=== PATIENT | male | born 1990 | race Native Hawaiian/Other Pacific Islander ===

== ENCOUNTER 2018-05-25 08:29 | Outpatient (CLI) | payer OTHER ==
[2018-05-25 08:48] LABS: PLATELET COUNT 536 K/uL (142-355)
[2018-05-25 09:17] LABS: POTASSIUM 3.5 mmol/L (3.6-5.2)
== END 2018-05-25 19:11 | disposition home or self-care (01) ==
LOC: LABW 08:29
PROVIDERS: Internal Medicine
DX: K85.90 Acute pancreatitis without necrosis or infection, unspecified (principal)
CPT/HCPCS: 36415; 80053; 81000; 82150; 83690; 85027

== ENCOUNTER 2018-06-30 10:16 | Outpatient (CLI) | payer OTHER | END 2018-06-30 23:17 | disposition home or self-care (01) | LOC: US 10:16 | DX: R93.5 Abnormal findings on diagnostic imaging of other abdominal regions, including retroperitoneum (principal) ==

== ENCOUNTER 2018-11-24 05:45 | Inpatient (IN) | payer OTHER ==
[~2018-11-24] VITALS: Ht 172.7 cm; Wt 72.7 kg
[2018-11-24] VITALS (16 sets, daily range): BP systolic 108–162; BP diastolic 62–108; TEMP 97.4–98.7; Ht 172.7 cm; Wt 72.7 kg
[2018-11-24 06:29] LABS: PLATELET COUNT 233 K/uL (142-355)
[2018-11-24 06:54] LABS: POTASSIUM 3.3 mmol/L (3.6-5.2)
[2018-11-24 07:02] LABS: PARTIAL THROMBOPLASTIN TIME 21.9 SECONDS (24.5-33.6)
[2018-11-24 12:52] LABS: POTASSIUM 4.1 mmol/L (3.6-5.2); SODIUM 137 mmol/L (136-145)
[2018-11-25] VITALS: BP 112/69; TEMP 98.2
[2018-11-25 04:00] VITALS: BP 117/77; TEMP 98.1
[2018-11-25 05:44] LABS: PLATELET COUNT 120 K/uL (142-355)
[2018-11-25 06:07] LABS: POTASSIUM 3.7 mmol/L (3.6-5.2)
[2018-11-25 08:00] VITALS: BP 108/68; TEMP 98.3
[2018-11-25 12:00] VITALS: BP 123/71; TEMP 98.7
[2018-11-25 16:00] VITALS: BP 120/69; TEMP 98.5
[2018-11-25 20:00] VITALS: BP 116/75; TEMP 98.2
[2018-11-26] VITALS: BP 114/66; TEMP 98
[2018-11-26 04:00] VITALS: BP 121/77; TEMP 98.2
[2018-11-26 05:43] LABS: PLATELET COUNT 123 K/uL (142-355)
[2018-11-26 06:01] LABS: POTASSIUM 3.4 mmol/L (3.6-5.2)
[2018-11-26 08:20] VITALS: BP 120/71; TEMP 98.1
[2018-11-26 12:08] VITALS: BP 123/70; TEMP 97.6
[2018-11-26 16:00] VITALS: BP 135/86; TEMP 98.1
[2018-11-26 20:00] VITALS: BP 117/72; TEMP 98.2
[2018-11-27] VITALS: BP 126/78; TEMP 98.5
[2018-11-27 04:00] VITALS: BP 121/76; TEMP 98.1
[2018-11-27 04:49] LABS: POTASSIUM 3.8 mmol/L (3.6-5.2)
[2018-11-27 08:00] VITALS: BP 128/84; TEMP 97.65
== END 2018-11-27 10:25 | disposition home or self-care (01) | DRG 439 ==
LOC: ED 05:45 → MED/SURG 11:00
PROVIDERS: Hospitalist; ADMIT Family Medicine
DX: K85.20 Alcohol induced acute pancreatitis without necrosis or infection (principal); F10.288 Alcohol dependence with other alcohol-induced disorder; E46 Unspecified protein-calorie malnutrition; K29.80 Duodenitis without bleeding; E73.8 Other lactose intolerance; Z91.19 Patient's noncompliance with other medical treatment and regimen; K21.9 Gastro-esophageal reflux disease without esophagitis; E87.6 Hypokalemia; D63.8 Anemia in other chronic diseases classified elsewhere; K59.09 Other constipation
CPT/HCPCS: 36415; 80053; 80307; 80320; 81000; 82140; 82150; 83690; 84484; 85027; 85610; 85730; 86318; 87040; 87088; 93005; 96361; 96365; 96374; 96375; 99284; J0696; J1170; J1885; J1956; J2060; J2175; J2405; J3490; Q9963

== ENCOUNTER 2019-02-08 12:42 | Inpatient (IN) | payer OTHER ==
[~2019-02-08] VITALS: Ht 172.7 cm; Wt 71.7 kg
[2019-02-08] VITALS (12 sets, daily range): BP systolic 134–172; BP diastolic 83–114; TEMP 97.7–98.1; Ht 172.7 cm; Wt 71.7 kg
[2019-02-08 13:44] LABS: PLATELET COUNT 211 K/uL (142-355)
--- NOTE | 2019-02-08 23:13 | NUR ---
02/08/19 2300 PT C/O OF HURTING AGAIN AFTER RECEIVING PAIN MEDICATION SAID HE IS RESTLEESS AND CANNOT SLEEP.CC
[2019-02-09] VITALS: BP 130/87; TEMP 98.3
--- NOTE | 2019-02-09 01:53 | NUR ---
02/09/19 0140 CALLED TO ER JENN SPOKE WITH CONCERNING PATIENT STATES HE IS IN PAIN RATES 7-8 ON SCALE.TOLD HIME I WILL HAVE TO CALL ER MD TO GET ANOTHER ORDER FOR PAIN MEDICATION.CC
[2019-02-09 04:00] VITALS: BP 130/86; TEMP 97.9
--- NOTE | 2019-02-09 05:13 | NUR ---
Patient was admitted with pancreatitis and alcohol abuse and is a 28YOM and is presently NPO and labs reveal WBC, glucose, t.bilirubin, t protein, lipase and amalaye elevated and Na, K, Cl and alt all depressed see labs, receiving KCl, MVI with folic acid and B1 and patient stated abdominla pain and has a PMH and admisssion of GERD, Hypokalemia, Hyponatremia,, N/V and ua shows dehydration. 68" and 159 lbs and IBW 154+/-10% (139-169) and at 159 is 103% of IBW and BMI 23.7 and is wnl's and kcal needs 1750 x 25, 2100 x 30 and 2450 x 35, protein needs 70-77 x 1.0-1.1, 84-92 x 1.2/1.3. and fluid needs x 20 = 2100 and x 35 = 2450 and increase fluids as tolerated d/t dx. Recommend: 1- Advance LUCRECIA 2- Increase fluids as tolerated
[2019-02-09 05:29] LABS: PLATELET COUNT 153 K/uL (142-355)
[2019-02-09 05:38] LABS: POTASSIUM 3.6 mmol/L (3.6-5.2)
[2019-02-09 08:00] VITALS: BP 123/77; TEMP 98.1
[2019-02-09 12:00] VITALS: BP 128/88; TEMP 98
[2019-02-09 16:00] VITALS: BP 137/93; TEMP 98
[2019-02-09 20:00] VITALS: BP 144/95; TEMP 97.8
[2019-02-10] VITALS: BP 123/77; TEMP 97.9
[2019-02-10 03:59] VITALS: BP 134/86; TEMP 98.1
[2019-02-10 05:44] LABS: POTASSIUM 3.9 mmol/L (3.6-5.2)
[2019-02-10 08:07] VITALS: BP 137/79; TEMP 98
[2019-02-10 12:00] VITALS: BP 142/87; TEMP 98.6
[2019-02-10 16:00] VITALS: BP 131/76; TEMP 97.2
== END 2019-02-10 17:25 | disposition home or self-care (01) | DRG 439 ==
LOC: ED 12:42 → MED/SURG 16:50
PROVIDERS: Family Medicine; Internal Medicine; ADMIT Family Medicine
DX: K85.20 Alcohol induced acute pancreatitis without necrosis or infection (principal); E87.1 Hypo-osmolality and hyponatremia; K21.9 Gastro-esophageal reflux disease without esophagitis; F10.10 Alcohol abuse, uncomplicated; E86.0 Dehydration; E87.6 Hypokalemia; R00.0 Tachycardia, unspecified
CPT/HCPCS: 36415; 80053; 80061; 80307; 80320; 81000; 82150; 83690; 84484; 85027; 93005; 96360; 96375; 99284; J1170; J2060; J2175; J2405; J3411; J3480; J3490; Q9963

== ENCOUNTER 2019-09-14 14:06 | Outpatient (CLI) | payer OTHER ==
[2019-09-14 14:47] LABS: POTASSIUM 3.8 mmol/L (3.6-5.2)
[2019-09-14 14:58] LABS: PLATELET COUNT 282 K/uL (142-355)
== END 2019-09-14 21:53 | disposition home or self-care (01) ==
LOC: LABW 14:06
PROVIDERS: Internal Medicine
DX: K86.0 Alcohol-induced chronic pancreatitis (principal)
CPT/HCPCS: 36415; 80053; 81000; 85027

== ENCOUNTER 2019-12-02 06:25 | Outpatient (CLI) | payer OTHER ==
[2019-12-02 06:43] LABS: PLATELET COUNT 236 K/uL (142-355)
[2019-12-02 08:26] LABS: POTASSIUM 3.1 mmol/L (3.6-5.2)
== END 2019-12-02 20:21 | disposition home or self-care (01) ==
LOC: CT 06:25
PROVIDERS: Internal Medicine Gastroenterology
DX: K86.1 Other chronic pancreatitis (principal); R10.812 Left upper quadrant abdominal tenderness
CPT/HCPCS: 36415; 80053; 80061; 82150; 83690; 85027; Q9963

== ENCOUNTER 2020-01-01 18:53 | Inpatient (IN) | payer OTHER ==
[~2020-01-01] VITALS: Ht 172.7 cm; Wt 69.6 kg
[2020-01-01] VITALS (8 sets, daily range): BP systolic 138–171; BP diastolic 89–105; TEMP 98–98.8; Ht 172.7 cm; Wt 69.6 kg
[2020-01-01 19:33] LABS: PLATELET COUNT 197 K/uL (142-355)
[2020-01-01 19:43] LABS: POTASSIUM 3.4 mmol/L (3.6-5.2)
[2020-01-01 20:10] LABS: PARTIAL THROMBOPLASTIN TIME 20.7 SECONDS (24.5-33.6)
--- NOTE | 2020-01-01 21:45 | NUR ---
PT ADMITTED FROM ER VIA W/C. PT ABLE TO STAND AND PIVOT TO BED. PT ALERT AND ORIENTED. IV FLUIDS INFUSING W/O DIFF
--- NOTE | 2020-01-01 23:37 | NUR ---
PT STATES THAT HE DOES NOT TAKE ANYTHING FOR DEPRESSION OR ANXIETY BUT STATES THAT HE WANTS TOO. STATED THAT HE SAW DR BARBOZA BACK IN 2012. PT STATES THAT HE WEARS GLOVES HE DOESNT LIKE TO TOUCH THINGS OTHER PEOPLE HAVE TOUCHED.
[2020-01-01] MEDS ORDERED: PEPCID20 MG PO (23:42)
[2020-01-01] MEDS ORDERED: ONDA4TAB3 PO (23:43)
[2020-01-02] VITALS (7 sets, daily range): BP systolic 14–169; BP diastolic 81–107; TEMP 98.3–98.8
--- NOTE | 2020-01-02 00:10 | NUR ---
PT CRYING IN PAIN, (BACKPAIN) STATES THIS IS NOT NEW, HAS THIS TYPE OF PAIN WHEN HE IS HURTING IN HIS STOMACH. PT REMOVED NON SKID SOCKS.
--- NOTE | 2020-01-02 01:35 | NUR ---
SPOKE WITH ER DR INTERIANO REGARDING PTS PAIN LEVEL. ORDER RECIEVED TO INCREASE DILAUDID 2MG Q4 HRS PRN
--- NOTE | 2020-01-02 07:00 | NUR ---
PT HAS HAD NO VOMITING DURING THE NIGHT, PT HAS ATTEMPTED TO MAKE HIMSELF THROW UP, STATES HE THOUGHT IT WOULD MAKE HIS PAIN LESS.
--- NOTE | 2020-01-02 07:27 | NUR ---
Patient was admitted with acute pancreatitis without necrosis, abdpminal pain, and is on a NPO diet plan. nausea, vomiting and started drinking alcohol again, BP at 146/98 and see EMR for more information and details, labs that are elevated are WBC, glucose 167, Total protein 8.5, amylase 285, lipase 3281 elevated and those depressed are APTT, K, Cl,; and medications B1/thiamin, folic acid, MVI, KCl, Dilaudid, zofran, Tylenol, ativan, Lovenox, Insulin; started using ETOH again, loss of appetite, N/V, abdominal pain, worse with eating, GERD, MVP, and see EMR for more informaiton and details, reviewed all, patient is 5'8" at 146.2 lbs. and is a 29YOM; and IBW = 154+/-10% (139 to 169 lbs.) and kcal needs x 25 = 1800, x 30 = 2100, x 35 = 2500, x 40 = 3900 kcal/day, protein needs x .8 to 1.5 = 56 to 105 grams per day. BMI = 22.19 and is wnl's and is 95% of IBW and fluids for IBW x 25 to 30 = 1800 to 2100 and x 35 to 30 = 2500 to 2900 ml/cc per day. 1-Advance LUCRECIA- NPO 2-Needs to AVOID ALCOHOL/ETOH 3-SHould not be on CLD > 24 hours, FLD > 48 hours and if can't eat suggest TPN or a tube feeding for nutrition . 4-Once diet is advance needs to increase fresh fruits, vegetbales, whole grains, lean meats as chicken and fish broiled or baked, avoid fried foods, grasy foods, butter, mayonnaise, margarine and use canola or oil oils, avocado, avoid whole fat foods as milk, dairy and use a fat free or even better non-fat dairy foods, limit fat to a Tablespoon a day or 3 teaspoons a day. Avoid processed foods as luncheon meats, chocolate, egg yolks, ice cream, desserts that are high in fat, try and stick with MUS fats. Drink water or lemon water and avoid high calorie/sugary drinks and musa. 5-Make sure stays hydrated 6-Monitor labs 7-Make sure patient know when and how to give insulin 8-Needs to stop smoking and stop drinking- smoking 1 ppd per EMR 9-When eating suggest to add a MVI daily 10-When eating add extra fresh fruits and vegetables if will take and extra water between and with meals.
[2020-01-02 07:56] LABS: PLATELET COUNT 158 K/uL (142-355)
--- NOTE | 2020-01-02 09:10 | NUR ---
PT REFUSES POTASSIUM, STATING HE THINKS IT WILL HURT HIS STOMACH.
--- NOTE | 2020-01-02 13:10 | NUR ---
NOTIFIED DR. LOERA THAT PT C/O SOB WHEN FLUID RATE ABOVE 150ML/HR. V/O GIVEN TO DECREASE FLUID RATE TO 150ML/HR.
--- NOTE | 2020-01-02 14:34 | NUR ---
PT REQUESTS ATIVAN AND PAIN MEDICATION FOR PAIN 01/20 TO ABD.
--- NOTE | 2020-01-02 14:42 | NUR ---
2MG DILAUDID IV AND 1MG ATIVAN IV ADMIN SIVP.
--- NOTE | 2020-01-02 18:00 | NUR ---
PT RESTING COMFORTABLY, IN NAD. CALL LIGHT IN EASY REACH. WILL CONTINUE TO MONITOR.
[2020-01-03 03:48] VITALS: BP 132/86; TEMP 98.5
--- NOTE | 2020-01-03 05:10 | NUR ---
PT RESTING QUIETLY IN BED WITH EYES CLOSED,AFTER PRN MED GIVEN PER REQ FOR C/O OF L SIDE ABD L QUADRANT PAIN, IVF'S OF NS INFUSING @ 150 CC'S/HR TO LAC W/O DIIFICULTY VIA PUMP. NAD NOTED, RESP EVEN AND UNLABORED, WILL CON'T TO MONITOR.
[2020-01-03 05:32] LABS: PLATELET COUNT 138 K/uL (142-355)
[2020-01-03 05:55] LABS: POTASSIUM 3.4 mmol/L (3.6-5.2)
[2020-01-03 07:49] VITALS: BP 138/89; TEMP 98.2
--- NOTE | 2020-01-03 08:21 | NUR ---
DR. LOERA NOTIFIED OF HR BEING UP TO 132 WHILE AT REST, BP 138/89 VIA MACHINE AND 140/82 MANUALLY. NO NEW ORDERS AT THIS TIME. TO COME SEE PT.
--- NOTE | 2020-01-03 08:26 | NUR ---
DR. LOERA AT BEDSIDE.
--- NOTE | 2020-01-03 08:42 | NUR ---
2MG DILAUDID ADMIN SIVP FOR 6/10 ABD PAIN.
--- NOTE | 2020-01-03 10:02 | NUR ---
25MG ATENOLOL ADMIN PO.
[2020-01-03 11:40] VITALS: BP 133/88; TEMP 98.4
--- NOTE | 2020-01-03 14:12 | NUR ---
HYDROCODONE 7.5MG PO ADMIN FOR 5/10 ABD PAIN.
--- NOTE | 2020-01-03 14:33 | NUR ---
1MG ATIVAN ADMIN SIVP FOR MILD ANXIOUSNESS.
--- NOTE | 2020-01-03 15:11 | NUR ---
PT STATES HE HAS NOT HAD ANY NAUSEA OR VOMITIING SINCE YESTERDAY AND IS REQUESTING SOMETHING TO DRINK.
--- NOTE | 2020-01-03 15:20 | NUR ---
RAMAKRIHSNA LOERA- ADVANCE DIET TO CLD.
[2020-01-03 15:57] VITALS: BP 127/84; TEMP 98.7
--- NOTE | 2020-01-03 18:34 | NUR ---
ENTERED ROOM TO ASSESS PT'S COMFORT LEVEL, PT NODS OFF WHILE TALKING, APPEARS COMFORTABLE AT THIS TIME. CALL LIGHT IN EASY REACH.
[2020-01-03 19:37] VITALS: BP 107/66; TEMP 98.5
--- NOTE | 2020-01-03 23:27 | NUR ---
IN BED AT THIS TIME RESTING QUIETLY WITH EYES CLOSED, NAD NOTED, IVF'S OF NS INFUSING TO LAC @ 150 CC/HR W/O DIFFICULTY PER PUMP. NO FURTHER C/O OF PAIN AFTER PRN GIVEN PER REQ. WILL CON'T TO MONITOR.
[2020-01-03 23:56] VITALS: BP 124/65; TEMP 98
[2020-01-04 04:00] VITALS: BP 138/58; TEMP 98
[2020-01-04 04:56] LABS: PLATELET COUNT 144 K/uL (142-355)
[2020-01-04 05:07] LABS: POTASSIUM 3.4 mmol/L (3.6-5.2)
--- NOTE | 2020-01-04 06:45 | NUR ---
PT C/O PAIN TO R KNEE, AREA NOTED WITH EDEMA 2 TO 2 1/2 WK POST OP RT KNEE REPLACEMENT, PT USES WALKER TO GET UP OUT OF BED W/O ASSISTANCE TO GO TO BATHROOM BY SELF ON THIS SHIFT. PRN PAIN MED GIVEN PER REQ. FOR RT. KNEE PAIN X 2 THIS SHIFT WITH RELIEF.NAD NOTED,RESP EVEN AND UNLABORED.
[2020-01-04] MEDS ORDERED: ATEN50TA36 PO (10:03)
[2020-01-04] MEDS ORDERED: HYDR-3182 PO (10:05)
[2020-01-04] MEDS ORDERED: ACET-206 PO (10:05)
[2020-01-04] MEDS ORDERED: CHLO10CA63 PO (10:07)
--- NOTE | 2020-01-04 11:54 | NUR ---
PT TELEMETRY DC'D. PT IV DC'D TIP INTACT NO REDNESS OR SWELLING NOTED. PT TOLERATED WELL. 2X2 APPLIED AND PRESSURE HELD FOR 1MINUTE. PT INSTRUCTED TO NOT DRINK WITH MEDICATIONS BEING GIVEN. EXPLAINED EACH NEW MEDICAITON AND RISKS FOR TAKING WITH ALCOHOL. PT STATES "I'M NOT GOING TO BE DRINKING" F/U APPT GIVEN TO PT. PT INSTRUCTED TO REPORT ANY REOCCURING OR WORSENING SYMPTOMS RELATED TO DIAGNOSIS. PT VERBALIZED UNDERSTANDING. PT DC'D VIA W/C BY FRANCESCO NANCE.
== END 2020-01-04 12:08 | disposition home or self-care (01) | DRG 440 ==
LOC: ED 18:53 → MED/SURG 20:30
PROVIDERS: Hospitalist; Internal Medicine Endocrinology, Diabetes & Metabolism; ADMIT Internal Medicine
DX: K85.20 Alcohol induced acute pancreatitis without necrosis or infection (principal); D72.828 Other elevated white blood cell count; E87.6 Hypokalemia; F10.10 Alcohol abuse, uncomplicated; Z72.0 Tobacco use; K21.9 Gastro-esophageal reflux disease without esophagitis; I10 Essential (primary) hypertension; R00.0 Tachycardia, unspecified; F10.20 Alcohol dependence, uncomplicated
CPT/HCPCS: 36415; 80053; 80320; 81000; 82150; 83690; 84443; 85027; 85610; 85730; 94760; 96360; 96361; 96375; 99284; J1170; J1650; J1956; J2060; J2405; J3411; J3490; Q9963

== ENCOUNTER 2020-04-07 01:44 | Inpatient (IN) | payer OTHER ==
[~2020-04-07] VITALS: Ht 172.7 cm; Wt 64.0 kg
[2020-04-07] VITALS (15 sets, daily range): BP systolic 113–174; BP diastolic 73–104; TEMP 97.8–98.6; Ht 172.7 cm; Wt 64.0 kg
[~2020-04-07 01:44] MED LIST: ACET-206 PO; ATEN50TA36 PO; CHLO10CA63 PO; HYDR-3182 PO; ONDA4TAB3 PO; PEPCID20 MG PO
[2020-04-07 02:16] LABS: PLATELET COUNT 219 K/uL (142-355)
[2020-04-07 02:29] LABS: SODIUM 133 mmol/L (136-145)
[2020-04-07 02:39] LABS: PARTIAL THROMBOPLASTIN TIME 23.2 SECONDS (24.5-33.6)
[2020-04-08] VITALS: BP 112/70; TEMP 98.6
[2020-04-08 04:00] VITALS: BP 111/62; TEMP 98.1
[2020-04-08 05:21] LABS: PLATELET COUNT 150 K/uL (142-355)
[2020-04-08 05:34] LABS: POTASSIUM 4.4 mmol/L (3.6-5.2)
[2020-04-08 08:00] VITALS: BP 112/73; TEMP 98.1
[2020-04-08 12:00] VITALS: BP 125/72; TEMP 98.9
[2020-04-08 16:00] VITALS: BP 133/76; TEMP 98.4
[2020-04-08 20:00] VITALS: BP 140/80; TEMP 98.4
[2020-04-09] VITALS: BP 124/78; TEMP 98.1
[2020-04-09 04:15] VITALS: BP 118/76; TEMP 98.2
[2020-04-09 05:21] LABS: PLATELET COUNT 138 K/uL (142-355)
[2020-04-09 05:35] LABS: POTASSIUM 4.4 mmol/L (3.6-5.2)
[2020-04-09 08:00] VITALS: BP 119/72; TEMP 98.7
[2020-04-09 12:00] VITALS: BP 124/73; TEMP 98.9
== END 2020-04-09 16:48 | disposition home or self-care (01) | DRG 440 ==
LOC: ED 01:44 → MED/SURG 04:00
PROVIDERS: Hospitalist
DX: K85.80 Other acute pancreatitis without necrosis or infection (principal); K86.1 Other chronic pancreatitis; K21.9 Gastro-esophageal reflux disease without esophagitis
CPT/HCPCS: 36415; 80053; 80320; 81000; 82150; 82550; 83690; 84484; 85027; 85610; 85730; 93005; 96360; 96361; 96365; 96374; 96375; 96376; 99284; J1170; J1650; J1885; J2270; J2405; J2543; J3490; Q9963

== ENCOUNTER 2020-07-14 00:41 | Inpatient (IN) | payer OTHER ==
[2020-07-14] VITALS (7 sets, daily range): BP systolic 130–148; BP diastolic 82–96; TEMP 97.7–98.8; Ht 172.7 cm; Wt 62.3 kg
[~2020-07-14] VITALS: Ht 172.7 cm; Wt 62.3 kg
[2020-07-14 01:47] LABS: POTASSIUM 4.8 mmol/L (3.6-5.2)
[2020-07-14 02:02] LABS: PLATELET COUNT 334 K/uL (142-355)
[2020-07-15] VITALS: BP 135/100; TEMP 97.9
[2020-07-15 04:00] VITALS: BP 119/82; TEMP 97.8
[2020-07-15 05:55] LABS: PLATELET COUNT 181 K/uL (142-355)
[2020-07-15 06:14] LABS: POTASSIUM 3.4 mmol/L (3.6-5.2)
[2020-07-15 08:00] VITALS: BP 121/79; TEMP 97.9
[2020-07-15 12:00] VITALS: BP 111/76; TEMP 98.3
[2020-07-15 16:00] VITALS: BP 141/86; TEMP 97.1
[2020-07-15 20:06] VITALS: BP 119/84; TEMP 98.3
[2020-07-16 00:08] VITALS: BP 123/81; TEMP 97.9
[2020-07-16 04:34] VITALS: BP 119/75; TEMP 97.9
[2020-07-16 06:09] LABS: POTASSIUM 3.4 mmol/L (3.6-5.2)
[2020-07-16] MEDS ORDERED: PANTOPRAZOLE 40MG TA PO (10:26)
[2020-07-16] MEDS ORDERED: SUCR1SUS PO (10:29)
[2020-07-16] MEDS ORDERED: PROMETHAZINE12.5 M3 PO (10:31)
== END 2020-07-16 12:43 | disposition home or self-care (01) | DRG 439 ==
LOC: ED 00:41 → MED/SURG 08:15
PROVIDERS: Family Medicine; ADMIT Hospitalist; ATTEND Internal Medicine
DX: K85.20 Alcohol induced acute pancreatitis without necrosis or infection (principal); N17.8 Other acute kidney failure; K29.60 Other gastritis without bleeding; K21.9 Gastro-esophageal reflux disease without esophagitis; R00.0 Tachycardia, unspecified
CPT/HCPCS: 36415; 80053; 80307; 80320; 81000; 82150; 82705; 83631; 83690; 83993; 85027; 87635; 93005; 96360; 96361; 96375; 96376; 99284; J0295; J1644; J2175; J2405; J2550; J3490; J7120; Q9963; U0003

== ENCOUNTER 2020-08-29 08:06 | Emergency (ER) | payer OTHER ==
[~2020-08-29] VITALS: Ht 172.7 cm; Wt 59.0 kg
[~2020-08-29 08:06] MED LIST changes: +PANTOPRAZOLE 40MG TA PO; +PROMETHAZINE12.5 M3 PO; +SUCR1SUS PO
[2020-08-29 08:10] VITALS: TEMP 97.7
[2020-08-29 08:48] LABS: PLATELET COUNT 266 K/uL (142-355)
[2020-08-29 09:00] LABS: SODIUM 138 mmol/L (136-145)
[2020-08-29 09:03] LABS: POTASSIUM 4.3 mmol/L (3.6-5.2)
[2020-08-29 12:00] VITALS: BP 149/93
== END 2020-08-29 12:15 | disposition short-term general hospital (02) ==
LOC: ED 08:06
PROVIDERS: Family Medicine
DX: R10.13 Epigastric pain (principal); F10.20 Alcohol dependence, uncomplicated; Y90.0 Blood alcohol level of less than 20 mg/100 ml
CPT/HCPCS: 80053; 80320; 82150; 82550; 82553; 83690; 84484; 85027; 87040; 93005; 96360; 96375; 96376; 99284; J2060; J2270; J2405; Q9963

== ENCOUNTER 2021-03-16 15:23 | Emergency (ER) | payer OTHER ==
[~2021-03-16] VITALS: Ht 172.7 cm; Wt 59.0 kg
[2021-03-16 16:29] LABS: PLATELET COUNT 261 K/uL (142-355)
[2021-03-16 16:41] LABS: POTASSIUM 3.6 mmol/L (3.6-5.2)
[2021-03-16 18:00] VITALS: BP 167/87; TEMP 97.2
== END 2021-03-16 18:00 | disposition home or self-care (01) ==
LOC: ED 15:23
PROVIDERS: Emergency Medicine
DX: F41.8 Other specified anxiety disorders (principal); G89.29 Other chronic pain; R00.0 Tachycardia, unspecified
CPT/HCPCS: 36415; 80053; 80307; 80320; 82150; 83690; 84484; 85027; 85379; 93005; 96360; 96375; 96376; 99284; J0153; J1170; J2405; J3490

== ENCOUNTER 2021-08-30 10:37 | Emergency (ER) | payer OTHER ==
[~2021-08-30] VITALS: Ht 172.7 cm; Wt 56.7 kg
[2021-08-30 11:55] LABS: POTASSIUM 2.5 mmol/L (3.6-5.2)
[2021-08-30 12:00] LABS: PLATELET COUNT 85 K/uL (142-355)
[2021-08-30 18:52] VITALS: BP 131/87; TEMP 98.9
== END 2021-08-30 18:52 | disposition short-term general hospital (02) ==
LOC: ED 10:37
PROVIDERS: Emergency Medicine
DX: K92.2 Gastrointestinal hemorrhage, unspecified (principal); E87.6 Hypokalemia; K52.89 Other specified noninfective gastroenteritis and colitis; Z11.52 Encounter for screening for COVID-19
CPT/HCPCS: 80053; 81000; 82272; 84443; 84484; 85027; 87635; 93005; 96360; 96361; 96365; 96375; 99284; J2405; J3490; U0003